=== PATIENT | male | born 1955 | race Caucasian/White ===

== ENCOUNTER → 2017-01-04 | Outpatient (CLI) | payer MEDICARE ==
[2015-07-15 02:10] VITALS: BP 128/81
[~2017-01-04] MED LIST: ALLO300T PO; AMIT100T PO; BUDE10.2 IH; CARV6.252 PO; CITA20TA5 PO; CYCL5TAB PO; DONE10TA61 PO; HYDR-2762 PO; HYDR25TA PO; IPRA4AER IH; LOVA40TA2 PO; OXYC-327 PO; OXYC1TAB8 PO; WARF2TAB7 PO
--- NOTE | 2017-01-04 12:27 | PAIN ---
DATE OF SERVICE: 01/04/2017 PROGRESS NOTE FOR PAIN CLINIC DIAGNOSES: 1. Lumbar radiculopathy with lumbar degenerative disk disease, low back pain. 2. Myofascial pain. HISTORY OF PRESENT ILLNESS: The patient is a 61-year-old male who returns for followup, last seen in 06/2015. The patient had undergone some trigger point injections for some lumbar pain he was having. Also we had some physical therapy with him, which seemed to help significantly. The patient reports he has been doing very well but about 2-3 weeks ago, he was doing some bowling with his family and exacerbated the pain is back significantly more on the right than the left side, but present bilaterally. The patient reports since that time he has gotten slightly better but rates it still a 10 on a scale of 10 completely at its least and worst levels. The patient reports it is aching, sharp tight, cramping, tingling, constant, severe, becomes unbearable in the back itself, although at the same time he reports that it is getting better with time. The patient reports no motor or sensory deficits, no radiation to the lower extremities. No loss of motor function. The patient reports he sleeps well at night, does not hurt when he is sitting or sleeping or lying down, only when he is up standing and walking that he has noticed the pain, it is in the mid low back generally. The patient reports no new motor or sensory deficits, no new bowel or bladder incontinence or other complaints at this time. PAST MEDICAL HISTORY: Significant for hypertension, congestive heart failure, arthritis, hearing loss, depression, anxiety, dementia, and dizziness. PREVIOUS SURGERY: Includes wrist surgery in 2006, carotid endarterectomy in 2004, tonsillectomy as a child. CURRENT MEDICATION: Updated on the patient's chart including hydrocodone, Coumadin, Symbicort, Aricept, citalopram, Combivent, amitriptyline, allopurinol, cyclobenzaprine, lovastatin, and carvedilol. ALLERGIES: THE PATIENT IS ALLERGIC TO MORPHINE. SOCIAL HISTORY: Includes the patient is living with his daughter now because of some increasing dementia by her report and she accompanies him at his visit today. PHYSICAL EXAMINATION: VITAL SIGNS: The patient's blood pressure is 102/54, pulse 63, respirations 18, temperature is 97.6 degrees Fahrenheit, height is 5 feet 10 inches, weighs 205 pounds. GENERAL: The patient is awake, alert, oriented, appropriate, very pleasant demeanor. HEENT: Head shows normocephalic, atraumatic. Extraocular movements are intact, symmetrical. The patient wears eye glasses. Oral cavity: Mucous membranes moist and pink. NECK: Shows anterior throat supple without palpable lymphadenopathy noted. Swallow reflex is symmetrical. Neck shows full rotational motion of the cervical spine without tenderness or difficulty including extension and flexion, right and left lateral rotation greater than 45 degrees. CHEST: Shows normal on inspection. Breath sounds are distant, but clear to auscultation bilaterally, no rales, rhonchi or wheezes are auscultated. HEART: Shows S1 and S2 clear. No murmurs auscultated. ABDOMEN: Soft, obese, nontender, nondistended. No palpable organomegaly is noted. No rebound or guarding demonstrated. BACK: Shows spine grossly in the midline. Slight exaggeration of thoracic kyphosis, mild flattening of lumbar lordotic curvature. Lumbar paraspinous musculature shows symmetrical on inspection. With palpation, it shows some moderate tenderness, more on the right than the left with palpation in the low and mid lumbar paraspinous musculature. Again, only diffusely without specific trigger points or radiation of pain bilaterally, some mild tenderness over the posterior superior iliac spine on the right compared to the left, but not over the sacroiliac region or the sacrum with palpation. The patient shows good rotational motion both laterally as well as extension and flexion of lumbar spine without significant tenderness or difficulty. LOWER EXTREMITIES: Showed deep tendon reflexes 1+ in the patellar and tendo-calcaneus tendons are equal. Motor exam is strong with 5/5 dorsiflexion, extension, quadriceps, and hamstring flexion and is symmetrical bilaterally. Peripheral pulses are 1+ posterior tibial and dorsalis pedis pulses. No peripheral edema is noted. No clubbing, no cyanosis. Lower extremities are warm and dry to touch, equal in color and appearance. The patient is able to stand, trying to stand on his toes causes significant loss of balance. He is ambulating without any assistive devices; however, does have a bit of shuffling gait and does not appear to favor the right or left lower extremity significantly, but is slow and deliberate with his steps. The patient does hold on to his daughter when he is ambulating. Options were discussed with the patient and the patient's old chart was reviewed as his current medication regimen updated. Current review of systems updated today as well as noted. We discussed options and we will try Medrol Dosepak with instructions, side effects to be aware of discussed. The patient was instructed to take it with food as well. We will see if this does decrease some of the pain that he is having in his low back as it is nonradicular in fashion at this time. We did discuss potential interventional techniques such as lumbar facet injections, also physical therapy, which he is interested in pursuing if it is not better after the Medrol Dosepak, we will have the patient followup. He is instructed to call in about 1 week. We will set up physical therapy for him at that time if not significantly better as he did well with this in the past. The patient is encouraged to increase activity, also showed him stretching and strengthening exercises to perform as well as heat application discussed with low back. The patient will follow up as instructed. YUKI HOLLOWAY MD DR: KIERSTEN/rosanna JOB#: [id number] / [id number]
== END | disposition home or self-care (01) ==
LOC: PNCL 09:58
PROVIDERS: ATTEND Anesthesiology
DX: M54.16 Radiculopathy, lumbar region (principal); M51.36 Other intervertebral disc degeneration, lumbar region; M79.1 Myalgia
CPT/HCPCS: G0463

== ENCOUNTER → 2017-04-16 | Outpatient (CLI) | payer MEDICARE ==
[2015-07-15 02:10] VITALS: BP 128/81
--- NOTE | 2017-04-16 10:27 | KCIC ---
MRI Lumbar Spine without contrast History: Lumbar radiculopathy, low back pain, bilateral lower extremity pain and weakness Technique: Multiplanar, multi sequential noncontrast MR imaging was performed of the lumbar spine. Contrast: None Comparison: August 15, 2013 Findings: Lumbar vertebral body stature and AP alignment are maintained. There is again minimal degenerative disc disease throughout lumbar spine other than sparing L4-5. Conus terminates at L1. There are anterior annular tears L1-2 through L3-4, posterior radial and annular tears at L5-S1 present previously. There are again hemangiomas most notable of L1. L1-L2: There is mild buckling of the ligamentum flavum. Spinal canal and neural foramina are adequate. There is mild prominence of posterior epidural fat and facet degenerative change. L2-L3: There is mild facet hypertrophic change and buckling of the ligamentum flavum as well as mild prominence of posterior epidural fat. Spinal canal and neural foramina are adequate. L3-L4: There is again mild to moderate facet degenerative change. There is again minimal disc osteophyte complex. Spinal canal and neural foramina are adequate. L4-L5: There is again mild to moderate facet degenerative change. The spinal canal and neural foramina are adequate. L5-S1: Spinal canal and neural foramina remain adequate. There is mild facet degenerative change. Impression: 1. Findings are similar compared with the 2013 exam. There is no new significant lumbar spinal stenosis or neural foramina compromise. There is again minimal degenerative disc disease throughout lumbar spine other than sparing of L4-5. Electronically signed by: Alberto Vazquez MD (04/16/2017 10:24 AM) [id number]
== END | disposition home or self-care (01) ==
LOC: KCIC MRI 09:17
PROVIDERS: ATTEND Anesthesiology
DX: M51.16 Intervertebral disc disorders with radiculopathy, lumbar region (principal); Z88.6 Allergy status to analgesic agent
CPT/HCPCS: 72148

== ENCOUNTER → 2017-05-14 | Outpatient (CLI) | payer MEDICARE ==
[2015-07-15 02:10] VITALS: BP 128/81
[~2017-05-14] MED LIST changes: +BUPIVACAINE MPF 0.25% 10 ML VIAL. ONE; +methylPREDNISolone ACETATE 40 MG/ML VIAL. ONE
--- NOTE | 2017-05-14 13:19 | PAIN ---
DATE OF SERVICE: 05/14/2017 PROGRESS NOTE FOR PAIN CLINIC DIAGNOSES: 1. Low back pain with lumbar degenerative disk disease with lumbar radiculopathy. 2. Bilateral sacroiliitis. 3. Myofascial pain. HISTORY OF PRESENT ILLNESS: The patient is a 62-year-old male who returns for followup status post bilateral sacroiliac joint injections, last seen 04/10/2017. He did very well, about 50% improvement he reports, although it took a day or so before the pain was noticeably decreased. The patient reports he had been increasing activity with greater ease and comfort and sitting much more comfortably, standing, walking, exacerbating some pain now, but the pain now is "higher" than it was on his last visit. The patient describes the pain at the low back, but above the sacral region, which is painful with walking and standing, better with sitting, but does not awaken him from sleep and now that he can sleep up to 12 hours a night without difficulty and without pain interrupting his sleep. The patient reports no new motor or sensory deficits, no new bowel or bladder incontinence or other complaints. The patient reports no loss of function. Rates his pain as a 9 on a scale of 10 at its worst, 8 on average and 7 at its least and is 7 today. The patient reports it is constant, becoming more cramping, more noticeable in the bilateral areas of low back, left essentially equal to right, cramping, shooting, tight, aching sensation, again worse with standing and walking, primarily noticed with these activities. The patient reports no new motor or sensory deficits, no bowel or bladder incontinence or other complaints. PHYSICAL EXAMINATION: VITAL SIGNS: Today, the patient's blood pressure is 139/79, pulse 77, respirations are 16, temperature is 97.8 degrees Fahrenheit, weight is 213 pounds. GENERAL: The patient is awake, alert, oriented, appropriate, very pleasant demeanor. HEENT: Head shows normocephalic, atraumatic. Extraocular movements are intact, symmetrical. Oral cavity: Mucous membranes moist and pink. Dentition is intact. NECK: Shows anterior throat supple without palpable lymphadenopathy noted. Swallow reflex is symmetrical. CHEST: Shows normal with inspection. Breath sounds clear to auscultation bilaterally. HEART: Shows S1, S2 clear. No murmurs auscultated. ABDOMEN: Soft, nontender, nondistended. No palpable organomegaly is noted. No rebound or guarding demonstrated. BACK: The patient's back shows spine grossly midline. Normal appearing thoracic kyphosis and mild flattening of lumbar lordotic curvature. Lumbar paraspinous muscle shows symmetrical on inspection with palpation. It shows some very significant tender musculature in the low lumbar distribution bilaterally and very, very firm rope-like musculature, very tender consistent with trigger point areas of musculature in the lumbar paraspinous distribution bilaterally, again left equal essentially to right. The patient's sacroiliac regions only show very mild tenderness with palpation as well as over the posterior superior iliac spine. No tenderness over the sacrum as well. The patient has good rotational motion of lumbar spine, both laterally as well as extension and flexion without significant difficulty. Also, lower extremities show deep tendon reflexes at 1+ in the patellar and tendo calcaneus tendons are equal. Motor exam is strong with 5/5 dorsiflexion, extension, quadriceps and hamstring flexion. Peripheral pulses are 1+ posterior tibial. Options were discussed with the patient. The patient's old chart was reviewed as his current medication regimen and updated. Current review of systems updated today as well. We will proceed with trigger point injections of the bilateral lumbar paraspinous musculature. Risks were discussed including but not limited to bleeding, infection, possibility of vascular uptake, spread of local anesthetic and numbness, side effects of steroid medication as well as poor results regarding pain control. The patient understands and wished to proceed. The patient will return to clinic in approximately 2 weeks for followup. He was counseled on his return appointment, activity level and side effects to be aware of. DIAGNOSES: Low back pain with lumbar degenerative disk disease, lumbar radiculopathy and myofascial pain. PROCEDURE: Bilateral trigger point injections of the lumbar paraspinous musculature using local anesthetic under sterile prep and drape. Medication injected a total of 40 mg Depo-Medrol plus total of 6 mL of 0.25% bupivacaine after negative aspiration at each injection site. CONDITION AT DISCHARGE: Stable. The patient tolerated procedure well, had no complications. YUKI HOLLOWAY MD DR: KIERSTEN/rosanna JOB#: [id number] / [id number]
== END | disposition home or self-care (01) ==
LOC: PNCL 11:05
PROVIDERS: ATTEND Anesthesiology
DX: M79.1 Myalgia (principal); M51.16 Intervertebral disc disorders with radiculopathy, lumbar region; M46.1 Sacroiliitis, not elsewhere classified; Z88.5 Allergy status to narcotic agent; Z88.6 Allergy status to analgesic agent; J44.9 Chronic obstructive pulmonary disease, unspecified; I10 Essential (primary) hypertension; M19.90 Unspecified osteoarthritis, unspecified site; I50.9 Heart failure, unspecified; Z87.891 Personal history of nicotine dependence
CPT/HCPCS: 20552; J1030; J3490

== ENCOUNTER → 2017-07-23 | Outpatient (CLI) | payer MEDICARE ==
[~2017-07-23] MED LIST changes: -ALLO300T PO; -AMIT100T PO; -BUDE10.2 IH; +BUPIVACAINE MPF 0.25% 10 ML VIAL.; -BUPIVACAINE MPF 0.25% 10 ML VIAL. ONE; -CARV6.252 PO; -CITA20TA5 PO; -CYCL5TAB PO; -DONE10TA61 PO; -HYDR-2762 PO; -HYDR25TA PO; -IPRA4AER IH; -LOVA40TA2 PO; -OXYC-327 PO; -OXYC1TAB8 PO; -WARF2TAB7 PO; +methylPREDNISolone ACETATE 40 MG/ML VIAL.; -methylPREDNISolone ACETATE 40 MG/ML VIAL. ONE
== END | disposition home or self-care (01) ==
LOC: PNCL 13:25
DX: M51.16 Intervertebral disc disorders with radiculopathy, lumbar region (principal); M46.1 Sacroiliitis, not elsewhere classified; Z88.4 Allergy status to anesthetic agent; M79.1 Myalgia
CPT/HCPCS: 20553; J1030; J3490

== ENCOUNTER → 2018-05-23 | Outpatient (CLI) | payer MEDICARE ==
[2015-07-15 02:10] VITALS: BP 128/81
[~2018-05-23] MED LIST changes: +ALLO300T PO; +AMIT100T PO; +BUDE10.2 IH; -BUPIVACAINE MPF 0.25% 10 ML VIAL.; +CARV6.2511 PO; +CITA20TA6 PO; +CYCL5TAB PO; +DONE10TA61 PO; +FURO-68 PO; +HYDR-2765 PO; +HYDR25TA PO; +IPRA4AER IH; +LISI10TA2 PO; +LOVA40TA2 PO; +MEMA10TA PO; +OXYC1TAB19 PO; +OXYC1TAB8 PO; +TRAM50TA PO; +TRAZ-85 PO; +WARF2TAB96 PO; -methylPREDNISolone ACETATE 40 MG/ML VIAL.
--- NOTE | 2018-05-23 18:29 | PAIN ---
DATE OF SERVICE: 05/23/2018 DIAGNOSES: 1. Lumbar degenerative disk disease with lumbar radiculopathy and low back pain. 2. Myofascial pain. 3. Sacroiliitis. HISTORY OF PRESENT ILLNESS: The patient is a 63-year-old male who returns for a followup status post previous trigger point injection as well as medication management at some point in the past. The patient was last seen on 07/23/2017 and reports still doing fairly well. He is using some heat and massage therapies on his low back, which seems to be helping usually a hot shower with some stretching and strengthening as well. The patient reports that otherwise he is doing fairly well. We did give him some oxycodone last in July and then again in November of last year, which he uses only very sparingly, reports that he did well with that, is requesting a refill on that today as well. The patient reports his main complaint is low back pain bilaterally, some in the mid back as well, again worse with activity, standing, walking, changing positions, but better with sleeping or lying down, does not awaken him from sleep. The patient reports it is better with sitting as well. The patient reports his pain as an 8 on a scale of 10 at its worst, 8 on average, 6 at its least and is an 8 today. The patient reports it is dull, tight, alternating with a cramping pain in the back, becoming constant at sometimes with extended time on his feet more than about 30-40 minutes. The patient reports no new motor or sensory deficits, no new changes. PHYSICAL EXAMINATION: VITAL SIGNS: Shows blood pressure 125/82, pulse 73, respirations are 18, temperature is 97.7 degrees Fahrenheit, height is 5 feet 10 inches, weight is 199 pounds. GENERAL: The patient is awake, alert, oriented, appropriate, very pleasant demeanor. HEENT: Shows normocephalic, atraumatic. Extraocular muscles are intact and symmetrical. Oral cavity shows mucous membranes moist and pink. Dentition is intact. NECK: Shows anterior throat supple without palpable lymphadenopathy noted. Swallow reflex is symmetrical. CHEST: Shows normal on inspection. Breath sounds are clear to auscultation bilaterally. HEART: Shows S1, S2 clear. No murmurs auscultated. ABDOMEN: Soft, nontender, nondistended. No palpable organomegaly is noted. No rebound or guarding demonstrated. MUSCULOSKELETAL: Back shows spine grossly in the midline, slight exaggeration of thoracic kyphosis, minor flattening of the lumbar lordotic curvature. Lumbar paraspinous muscle shows symmetrical on inspection, on palpation shows some moderate tenderness, only diffusely in the left side of the low and mid lumbar distribution without significant tenderness on the right which is fairly supple in the right paraspinous musculature. The patient's lower extremities show deep tendon reflexes at 1+ in the patellar and tendo-calcaneus tendons. Motor exam is strong with 5/5 dorsiflexion, extension, quadriceps and hamstring flexion and symmetrical as well. The patient's peripheral pulses are 1+ posterior tibia. No peripheral edema is noted. PLAN: Options were discussed with the patient and the patient's niece who accompanies him to his visit today. We will refill the patient's oxycodone for 90 tablets at 7.5 mg. The patient was given instructions as well as side effects to be aware of with the medication and to use them only sparingly, which he does at this point. The patient also was encouraged to increase stretching and strengthening exercises of his back. We talked about heat application as well as massage techniques that he can do at home and he will try these, as well as continued stretching and strengthening. Also discussed activity and maintaining some activity as well just walking daily, which may help strengthen his back as well. The patient reports he will try and do this when the weather is good and is able to do so. The patient will follow up at this time on an as-needed basis, schedule back in about 1 month or as necessary and the patient reports he would like to call and schedule himself. YUKI HOLLOWAY MD DR: KIERSTEN/rosanna JOB#: [id number] / [id number]
== END | disposition home or self-care (01) ==
LOC: PNCL 13:32
PROVIDERS: ATTEND Anesthesiology
DX: M51.16 Intervertebral disc disorders with radiculopathy, lumbar region (principal); M79.18 Myalgia, other site; M46.1 Sacroiliitis, not elsewhere classified
CPT/HCPCS: G0463